=== PATIENT | male | born 1985 | race Hispanic/Latino ===

== ENCOUNTER 2019-06-01 06:29 | Inpatient (IN) | payer OTHER ==
[~2019-06-01] VITALS: Ht 172.7 cm; Wt 172.4 kg
--- OUTSIDE RECORDS SUMMARY | 2019-06-01 06:31 | XMS REPORT | Summary of Care ---
Author Author [facility] - Health Organization [facility] - Health Address Unknown Phone Unavailable Care Team Providers Care Formula Maker Name Role Phone Pcp, Patient Does Not Have A PCP Reason for Visit * Reason Comments Hospital F/U Cellulitis of the Right Leg Allergic reaction Possible to medication or new laundry detergent Encounter Details Care Team Description Date Type Department Kelley Esquivel MD [address] [place] [id number] [phone] Cellulitis of right lower extremity (Primary Dx); Hives 02/23/2019 Office Visit [facility], [facility] [address] [place] [address] Allergies Comments Active Allergy Reactions Severity Noted Date Clindamycin Hives 02/23/2019 documented as of this encounter (statuses as of 02/23/2019) Medications End Date Status Medication Sig Dispensed Refills Start Date Active benzonatate 200 mg Take 1 60 capsule 0 capsuleIndications: Acute capsule by 9 non-recurrent maxillary mouth 3 sinusitis (three) times daily as needed for Cough. Active fexofenadine (ML Take by 0 ALLERGY) 180 mg tablet mouth daily. 02/26/2019 Active Lactobacillus Acidoph & Take 1 tablet 20 tablet 0 Bulgar (FLORANEX) 1 by mouth 2 9 million cell (two) times TabIndications: daily for 10 Cellulitis of right lower days. leg 03/05/2019 Active doxycycline 100 mg Take 1 20 capsule 0 capsuleIndications: capsule by 9 Cellulitis of right lower mouth 2 (two) extremity times daily for 10 days. Active methylPREDNISolone Take by 21 Each 0 (MEDROL, ZACK,) 4 mg mouth 9 tabletsIndications: Hives SEE-INSTRUCTI ONS. follow package directions 02/23/2019 Discontinued clindamycin 300 mg Take 1 28 capsule 0 capsuleIndications: capsule by 9 Cellulitis of right lower mouth 4 leg (four) times daily for 7 days. Status Hospital, Clinic, or Ordered Dose Route Frequency Start End Date Other Facility Date Administered Medication Ended methylPREDNISolone 80 mg IM ONCE 02/24/20 acetate (DEPO-MEDROL) 19 9 injection 80 mgIndications: Hives documented as of this encounter (statuses as of 02/23/2019) Active Problems Problem Noted Date Cellulitis 02/14/2019 Morbid obesity with body mass index of 50 or higher 02/14/2019 documented as of this encounter (statuses as of 02/23/2019) Immunizations Name Administration Dates Next Due DTAP 10/31/2017 documented as of this encounter Social History Date Tobacco Use Types Packs/Day Years Used Current Some Day Smoker Cigarettes 6 Smokeless Tobacco: Never Used Drinks/Week oz/Week Comments Alcohol Use Yes Alcohol Habits Answer Date Recorded How often do you have a drink containing alcohol? 2-3 times a week 12/23/2018 How many drinks containing alcohol do you have on 1 or 2 12/23/2018 a typical day when you are drinking? How often do you have six or more drinks on one Not asked occasion? Sex Assigned at Date Recorded Not on file Industry Job Start Date Occupation Not on file Not on file Not on file Travel End Travel History Travel Start No recent travel history available. documented as of this encounter Last Filed Vital Signs Reading Time Taken Comments Vital Sign 132/80 02/23/2019 1:04 PM CDT Blood Pressure 82 02/23/2019 1:04 PM CDT Pulse 36.8 C (98.3 F) 02/23/2019 1:04 PM CDT Temperature 16 02/23/2019 1:04 PM CDT Respiratory Rate 96% 02/23/2019 1:04 PM CDT Oxygen Saturation - - Inhaled Oxygen Concentration 169.4 kg (373 lb 6.4 oz) 02/23/2019 1:04 PM CDT Weight 172.7 cm (5' 8") 02/23/2019 1:04 PM CDT Height 56.78 02/23/2019 1:04 PM CDT Body Mass Index documented in this encounter Progress Notes * Kelley Esquivel MD - 02/23/2019 1:00 PM CDT Cc: Chief Complaint Patient presents with Hospital F/U Cellulitis of the Right Leg Allergic reaction Possible to medication or new laundry detergent Paolo Solis is a 33 year old male. Foot Pain Associated symptoms include a rash. The symptoms are aggravated by movement, pal pation and weight bearing. Answers for HPI/ROS submitted by the patient on 02/23/2019 Lower extremity pain Incident occurred: more than 1 week ago Incident location: other Injury mechanism: other Pain location: right leg Pain quality: burning Pain - numeric: 5/10 Pain course: fluctuating tingling: Yes inability to bear weight: No loss of motion: Yes loss of sensation: Yes muscle weakness: No Foreign body present: no foreign bodies Right lower leg bumps/warm. The night before he went to the ER he had the bumps /warm and burning sensation. He was admitted on 02/14/2019 and discharged on 01/20. He was sent home on Clindamycin 300 mg bid 7 days. Has not had anythin g similar to this issue prior to this episode. Patient states banged right leg into conreate and had small cut in leg before he ended up with the cellulitis. Broke out in hives. Benadryl, cetrizine. Just took at 12:30 before his appoint ment. Hives everywhere on his trunk both arms and legs. Into scalp even ears. Allergies Paolo has No Known Allergies. Medications Outpatient Medications Prior to Visit Medication Sig Dispense Refill clindamycin 300 mg capsule Take 1 capsule by mouth 4 (four) times daily for 7 days. 28 capsule 0 fexofenadine (ML ALLERGY) 180 mg tablet Take by mouth daily. Lactobacillus Acidoph & Bulgar (FLORANEX) 1 million cell Tab Take 1 tablet by mouth 2 (two) times daily for 10 days. 20 tablet 0 benzonatate 200 mg capsule Take 1 capsule by mouth 3 (three) times daily as needed for Cough. 60 capsule 0 No facility-administered medications prior to visit. Histories Past Medical History: Diagnosis Date Asthma Hypertension Past Surgical History: Procedure Laterality Date TONSILLECTOMY Social History Socioeconomic History Marital status: Single Spouse name: Not on file Number of children: Not on file Years of education: Not on file Highest education level: Not on file Occupational History Not on file Social Needs Financial resource strain: Not on file Food insecurity: Worry: Not on file Inability: Not on file Transportation needs: Medical: Not on file Non-medical: Not on file Tobacco Use Smoking status: Current Some Day Smoker Years: 6.00 Types: Cigarettes Smokeless tobacco: Never Used Substance and Sexual Activity Alcohol use: Yes Frequency: 2-3 times a week Drinks per session: 1 or 2 Drug use: No Sexual activity: Yes Lifestyle Physical activity: Days per week: Not on file Minutes per session: Not on file Stress: Not on file Relationships Social connections: Talks on phone: Not on file Gets together: Not on file Attends scientology service: Not on file Active member of club or organization: Not on file Attends meetings of clubs or organizations: Not on file Relationship status: Not on file Intimate partner violence: Fear of current or ex partner: Not on file Emotionally abused: Not on file Physically abused: Not on file Forced sexual activity: Not on file Other Topics Concern Not on file Social History Narrative Not on file Family History Problem Relation Age of Onset Hypertension Mother Cancer Maternal Grandmother Cancer Paternal Grandfather Review of Systems Constitutional: Negative. Cardiovascular: Negative. Skin: Positive for rash. Hives all over body Right lower extremity red/warm with some small bumps at surface of the skin. Vital Signs BP 132/80 (BP Location: Right arm, Patient Position: Sitting, BP CUFF SIZE: Adul t Large) | Pulse 82 | Temp 36.8 C (98.3 F) (Oral) | Resp 16 | Ht 5' 8" ( 1.727 m) | Wt 373 lb 6.4 oz (169.4 kg) | SpO2 96% | BMI 56.78 kg/m Physical Exam Constitutional: He appears well-developed and well-nourished. HENT: Head: Normocephalic and atraumatic. Eyes: Pupils are equal, round, and reactive to light. Conjunctivae are normal. Cardiovascular: Intact distal pulses. Pulmonary/Chest: Effort normal. Musculoskeletal: He exhibits edema (right lower leg) and tenderness (right lower leg on palpation). Neurological: He is alert. Skin: Skin is warm. Rash noted. There is erythema. Right lower leg warm, small bumps at the surface, with edema on leg. Rest of his body slightly raised lesions red, circular different sizes all over trunk, arms and legs, even into scalp Vitals reviewed. Assessment/Plan 1. Cellulitis of right lower extremity D/c clindamycin may be causing patient's "hives" reaction. Advised patient if d oes not improve will need to do further evaluation advise him to keep his legs r aised if at all possible. - doxycycline 100 mg capsule; Take 1 capsule by mouth 2 (two) times daily for 10 days. Dispense: 20 capsule; Refill: 0 2. Hives Depomedrol 80 mg im given to patient. - methylPREDNISolone acetate (DEPO-MEDROL) injection 80 mg - methylPREDNISolone (MEDROL, ZACK,) 4 mg tablets; Take by mouth SEE-INSTRUCTION S. follow package directions Dispense: 21 Each; Refill: 0 Stopped clindamycin. Advised patient let his know to go back to their old detergent incase that is what caused his hives. This visit did not involve counseling and coordination that comprised more than 50% of the visit time. Answers for HPI/ROS submitted by the patient on 02/23/2019 Lower extremity pain Incident occurred: more than 1 week ago Incident location: other Injury mechanism: other Pain location: right leg Pain quality: burning Pain - numeric: 5/10 Pain course: fluctuating tingling: Yes inability to bear weight: No loss of motion: Yes loss of sensation: Yes muscle weakness: No Foreign body present: no foreign bodies Answers for HPI/ROS submitted by the patient on 02/23/2019 Lower extremity pain Incident occurred: more than 1 week ago Incident location: other Injury mechanism: other Pain location: right leg Pain quality: burning Pain - numeric: 5/10 Pain course: fluctuating tingling: Yes inability to bear weight: No loss of motion: Yes loss of sensation: Yes muscle weakness: No Foreign body present: no foreign bodies documented in this encounter Plan of Treatment Health Maintenance Due Date Last Done Comments PNEUMOCOCCAL 0-64 YEARS 1993 COMBINED SERIES (1 of 1 - PPSV23) VARICELLA VACCINES (1 of 2000 2 - 13+ 2-dose series) INFLUENZA VACCINE 03/22/2019 DTaP,Tdap,and Td Vaccines 11/01/2027 10/31/2017 (2 - Tdap) documented as of this encounter Goals Goal Patient Associated Recent Progress Patient-Stat Author Goal Type Problems ed? Quit using tobacco Tobacco No Amy Canas (cigarettes, smokeless, etc) Use documented as of this encounter Results Not on filedocumented in this encounter Visit Diagnoses Diagnosis Cellulitis of right lower extremity - Primary Cellulitis and abscess of leg, except foot Hives Urticaria, unspecified documented in this encounter Administered Medications Action Date Dose Rate Site Medication Order MAR Action 02/23/2019 3:19 PM CDT 80 mg Right Dorsogluteal-IM methylPREDNISolone acetate (DEPO-MEDROL) Given injection 80 mg 80 mg, Intramuscular, ONCE, 1 dose, 02/23/19 at 1500, Routine documented in this encounter Insurance Type Payer Benefit Subscriber ID Effective Phone Address Plan / Dates Group O AETNA [facility] [id number] 2017-P sanya documented as of this encounter
--- OUTSIDE RECORDS SUMMARY | 2019-06-01 06:31 | XMS REPORT | Summary of Care ---
Author Author [facility] - Health Organization [facility] - Health Address Unknown Phone Unavailable Care Team Providers Care Chart Clerk Name Role Phone Pcp, Patient Does Not Have A PCP Encounter Details Care Team Description Date Type Department Doctor Unassigned, [place] [address] [place] [address] 02/25/2019 Patient Secure [facility], [address] [address] Allergies Comments Active Allergy Reactions Severity Noted Date Clindamycin Hives 02/23/2019 documented as of this encounter (statuses as of 03/05/2019) Medications End Date Status Medication Sig Dispensed Refills Start Date Active benzonatate 200 mg Take 1 60 capsule 0 capsuleIndications: Acute capsule by 9 non-recurrent maxillary mouth 3 sinusitis (three) times daily as needed for Cough. Active fexofenadine (ML Take by 0 ALLERGY) 180 mg tablet mouth daily. 03/05/2019 Active doxycycline 100 mg Take 1 20 capsule 0 capsuleIndications: capsule by 9 Cellulitis of right lower mouth 2 (two) extremity times daily for 10 days. Active methylPREDNISolone Take by 21 Each 0 (MEDROL, ZACK,) 4 mg mouth 9 tabletsIndications: Hives SEE-INSTRUCTI ONS. follow package directions 02/26/2019 Lactobacillus Acidoph & Take 1 tablet 20 tablet 0 Bulgar (FLORANEX) 1 by mouth 2 9 million cell (two) times TabIndications: daily for 10 Cellulitis of right lower days. leg documented as of this encounter (statuses as of 03/05/2019) Active Problems Problem Noted Date Cellulitis 02/14/2019 Morbid obesity with body mass index of 50 or higher 02/14/2019 documented as of this encounter (statuses as of 03/05/2019) Immunizations Name Administration Dates Next Due DTAP [...] of this encounter Last Filed Vital Signs Not on filedocumented in this encounter Plan of Treatment Health Maintenance Due Date Last Done Comments PNEUMOCOCCAL 0-64 YEARS 1993 COMBINED SERIES (1 of 1 - PPSV23) VARICELLA VACCINES (1 of 2000 2 - 13+ 2-dose series) INFLUENZA VACCINE (#1) 2019 DTaP,Tdap,and Td Vaccines 11/01/2027 10/31/2017 (2 - Tdap) documented as of this encounter Goals Goal Patient Associated Recent Progress Patient-Stat Author Goal Type Problems ed? Quit using tobacco Tobacco No Amy Canas (cigarettes, smokeless, etc) Use documented as of this encounter Results Not on filedocumented in this encounter Insurance Type Payer Benefit Subscriber ID Effective Phone Address Plan / Dates Group O AETNA AET[employer] O [id number] 2017-P resent documented as of this encounter
--- OUTSIDE RECORDS SUMMARY | 2019-06-01 06:31 | XMS REPORT | Summary of Care ---
Author Author [facility] - Health Organization [facility] - Health Address Unknown Phone Unavailable Care Team Providers Care Glove Cuffer Name Role Phone Pcp, Patient Does Not Have A PCP Encounter Details Care Team Description Date Type Department Doctor Unassigned, [place] [address] [place] [address] 02/25/2019 Patient Secure [facility] and [facility], [address] [phone] Allergies Comments Active Allergy Reactions Severity Noted Date Clindamycin Hives 02/23/2019 documented as of this encounter (statuses as of 03/06/2019) Medications End Date Status Medication Sig Dispensed Refills Start Date Active benzonatate 200 mg Take 1 60 capsule 0 capsuleIndications: Acute capsule by 9 non-recurrent maxillary mouth 3 sinusitis (three) times daily as needed for Cough. Active fexofenadine (ML Take by 0 ALLERGY) 180 mg tablet mouth daily. Active methylPREDNISolone Take by 21 Each 0 (MEDROL, ZACK,) 4 mg mouth 9 tabletsIndications: Hives SEE-INSTRUCTI ONS. follow package directions 02/26/2019 Lactobacillus Acidoph & Take 1 tablet 20 tablet 0 Bulgar (FLORANEX) 1 by mouth 2 9 million cell (two) times TabIndications: daily for 10 Cellulitis of right lower days. leg 03/05/2019 doxycycline 100 mg Take 1 20 capsule 0 capsuleIndications: capsule by 9 Cellulitis of right lower mouth 2 (two) extremity times daily for 10 days. documented as of this encounter (statuses as of 03/06/2019) Active Problems Problem Noted Date Cellulitis 02/14/2019 Morbid obesity with body mass index of 50 or higher 02/14/2019 documented as of this encounter (statuses as of 03/06/2019) Immunizations Name Administration Dates Next Due DTAP [...] Problems ed? Quit using tobacco Tobacco No Harvey Canase (cigarettes, smokeless, etc) Use documented as of this encounter Results Not on filedocumented in this encounter Insurance Type Payer Benefit Subscriber ID Effective Phone Address Plan / Dates Group O AETNA AETNA O [id number] 2017-P resent documented as of this encounter
--- OUTSIDE RECORDS SUMMARY | 2019-06-01 06:31 | XMS REPORT | Summary of Care ---
Author Author [facility] - Health Organization [facility] - Health Address Unknown Phone Unavailable Care Team Providers Care Butcher Helper Name Role Phone Pcp, Patient Does Not Have A PCP Reason for Referral * (Routine) Referred By Contact Referred To Contact Status Reason Specialty Diagnoses / Procedures Harmony Kaur, YOSEPH [address] [place] [address] Pcp, Patient Does Not Have A [address] [place] [address] New Request Diagnoses Cellulitis of right lower leg P rocedures Discharge Follow-up: PCP PATIENT DOES NOT HAVE A PCP; 1 Week * (Routine) Referred By Contact Referred To Contact Status Reason Specialty Diagnoses / Procedures Ana Hernandez MD [address] [place] [address] New Request Procedures UNILATERAL VENOUS DUPLEX LOWER EXTREMITY BY VASCULAR LAB * (Routine) Referred By Contact Referred To Contact Status Reason Specialty Diagnoses / Procedures Ana Hernandez MD [address] [place] [address] New Request Procedures UNILATERAL VENOUS DUPLEX LOWER EXTREMITY BY VASCULAR LAB Reason for Visit * Reason Comments Pain right leg ULTRASOUND * Auth/Cert Referred By Contact Referred To Contact Status Reason Specialty Diagnoses / Procedures [facility] Emergency Dept [address] [place] [address] Emergency Medicine Encounter Details Care Team Description Date Type Department Warren Carl DO [address] [facility] [address] [place] [address] Ramo Toure MD [address] [place] [address] [phone] Ana Hernandez MD [address] [place] [address] [phone] Cellulitis 02/14/2019 Hospital [facility] Health - Encounter Medicine/Surgery CLC 7B 02/16/2019 [address] [place] [address] Allergies No Known Allergiesdocumented as of this encounter (statuses as of 02/16/2019) Medications End Date Status Medication Sig Dispensed Refills Start Date Active benzonatate 200 mg Take 1 60 capsule 0 capsuleIndications: Acute capsule by 9 non-recurrent maxillary mouth 3 sinusitis (three) times daily as needed for Cough. Active fexofenadine (ML Take by 0 ALLERGY) 180 mg tablet mouth daily. 02/23/2019 Active clindamycin 300 mg Take 1 28 capsule 0 capsuleIndications: capsule by 9 Cellulitis of right lower mouth 4 leg (four) times daily for 7 days. 02/26/2019 Active Lactobacillus Acidoph & Take 1 tablet 20 tablet 0 Bulgar (FLORANEX) 1 by mouth 2 9 million cell (two) times TabIndications: daily for 10 Cellulitis of right lower days. leg 02/16/2019 Discontinued amoxicillin 500 mg Take 2 60 capsule 0 capsuleIndications: Acute capsules by 9 non-recurrent maxillary mouth 3 sinusitis (three) times daily. documented as of this encounter (statuses as of 02/16/2019) Active Problems Problem Noted Date Cellulitis 02/14/2019 Morbid obesity with body mass index of 50 or higher 02/14/2019 documented as of this encounter (statuses as of 02/16/2019) Immunizations Name Administration Dates Next Due DTAP 10/31/2017 documented as of this encounter Social History Date Tobacco Use Types Packs/Day Years Used Current Some Day Smoker Cigarettes 6 Tobacco Cessation: Ready to Quit: Yes; Counseling Given: Yes Drinks/Week oz/Week Comments Alcohol Use Yes Alcohol [...] Signs Reading Time Taken Comments Vital Sign 130/68 02/16/2019 8:00 AM CDT Blood Pressure 57 02/16/2019 8:00 AM CDT Pulse 35.6 C (96.1 F) 02/16/2019 8:00 AM CDT Temperature 18 02/16/2019 8:00 AM CDT Respiratory Rate 99% 02/16/2019 8:00 AM CDT Oxygen Saturation - - Inhaled Oxygen Concentration 168.7 kg (372 lb) 02/14/2019 11:27 AM CDT Weight 172.7 cm (5' 8") 02/14/2019 11:27 AM CDT Height 56.56 02/14/2019 11:27 AM CDT Body Mass Index documented in this encounter Discharge Summaries * Harmony Kaur FNP - 02/16/2019 10:38 AM CDT CLS Team Discharge Summary Date of Service: 02/16/2019 ADMIT DATE: 02/14/2019 DISCHARGE DATE: 02/16/2019 ATTENDING MD: YOSEPH Coughlin PCP: PATIENT DOES NOT HAVE A PCP REASON FOR ADMISSION RLE swelling and erythema FINAL DIAGNOSIS: RLE cellulitis. KIM on CPAP Asthma, mild intermittent Morbid obesity HTN Orders Placed This Encounter Discharge Follow-up: PCP PATIENT DOES NOT HAVE A PCP; 1 Week No orders of the defined types were placed in this encounter. Temp: [35.6 C (96.1 F)-36.5 C (97.7 F)] Pulse: [52-66] Resp: [16-19] BP: (118-159)/(53-83) SIGNIFICANT LAB/X-RAYS: Recent Results (from the past 48 hour(s)) Basic Metabolic Panel (NA, K, CL, CO2, GLUCOSE, BUN, CREATININE, CA) Collection Time: 02/14/19 11:45 AM Result Value Ref Range NA 139 135 - 145 mmol/L K 4.5 3.5 - 5.0 mmol/L CL 102 98 - 108 mmol/L CO2 TOTAL 25 23 - 31 mmol/L AGAP 12 2 - 16 BUN 17 7 - 23 mg/dL GLUCOSE 100 70 - 110 mg/dL CREATININE 0.94 0.60 - 1.25 mg/dL CALCIUM 9.8 8.6 - 10.6 mg/dL eGFR Calculation (Non-) 93.6 mL/min/1.73m2 eGFR Calculation () 113.5 mL/min/1.73m2 Blood Culture Collection Time: 02/14/19 11:45 AM Result Value Ref Range Blood Culture-Aerobic No growth at 24 hours No growth Blood Culture-Anaerobic No growth at 24 hours No growth CBC WITH DIFFERENTIAL Collection Time: 02/14/19 11:45 AM Result Value Ref Range WBC 8.13 4.20 - 10.70 10*3/L RBC 5.20 4.26 - 5.52 10*6/L HGB 15.9 12.2 - 16.4 g/dL HCT 46.6 38.4 - 49.3 % MCV 89.6 81.7 - 95.6 fL MCH 30.6 26.1 - 32.7 pg MCHC 34.1 31.2 - 35.0 g/dL RDW-SD 40.8 38.5 - 51.6 fL RDW-CV 12.7 12.1 - 15.4 % PLT 363 (H) 150 - 328 10*3/L MPV 9.3 (L) 9.8 - 13.0 fL NRBC/100 WBC 0.0 0.0 - 10.0 /100 WBCs NRBC x10^3 <0.01 10*3/L GRAN MAT (NEUT) % 49.8 % IMM GRAN % 1.50 % LYMPH % 37.5 % MONO % 8.9 % EOS % 1.6 % BASO % 0.7 % GRAN MAT x10^3(ANC) 4.05 1.99 - 6.95 10*3/uL IMM GRAN x10^3 0.12 (H) 0.00 - 0.06 10*3/uL LYMPH x10^3 3.05 1.09 - 3.23 10*3/uL MONO x10^3 0.72 0.36 - 1.02 10*3/uL EOS x10^3 0.13 0.06 - 0.53 10*3/uL BASO x10^3 0.06 0.01 - 0.09 10*3/uL BLOOD CULTURE SCREEN Collection Time: 02/14/19 1:18 PM Result Value Ref Range Blood Culture-Aerobic No growth at 24 hours No growth Blood Culture-Anaerobic No growth at 24 hours No growth CBC WITH DIFFERENTIAL Collection Time: 02/16/19 1:51 AM Result Value Ref Range WBC 8.16 4.20 - 10.70 10*3/L RBC 4.51 4.26 - 5.52 10*6/L HGB 13.6 12.2 - 16.4 g/dL HCT 40.2 38.4 - 49.3 % MCV 89.1 81.7 - 95.6 fL MCH 30.2 26.1 - 32.7 pg MCHC 33.8 31.2 - 35.0 g/dL RDW-SD 40.5 38.5 - 51.6 fL RDW-CV 12.5 12.1 - 15.4 % PLT 323 150 - 328 10*3/L MPV 9.3 (L) 9.8 - 13.0 fL NRBC/100 WBC 0.0 0.0 - 10.0 /100 WBCs NRBC x10^3 <0.01 10*3/L GRAN MAT (NEUT) % 44.5 % IMM GRAN % 0.60 % LYMPH % 45.1 % MONO % 6.7 % EOS % 2.7 % BASO % 0.4 % GRAN MAT x10^3(ANC) 3.63 1.99 - 6.95 10*3/uL IMM GRAN x10^3 0.05 0.00 - 0.06 10*3/uL LYMPH x10^3 3.68 (H) 1.09 - 3.23 10*3/uL MONO x10^3 0.55 0.36 - 1.02 10*3/uL EOS x10^3 0.22 0.06 - 0.53 10*3/uL BASO x10^3 0.03 0.01 - 0.09 10*3/uL BASIC METABOLIC PANEL (NA, K, CL, CO2, GLUCOSE, BUN, CREATININE, CA) Collection Time: 02/16/19 1:57 AM Result Value Ref Range NA 138 135 - 145 mmol/L K 4.0 3.5 - 5.0 mmol/L CL 102 98 - 108 mmol/L CO2 TOTAL 27 23 - 31 mmol/L AGAP 9 2 - 16 BUN 14 7 - 23 mg/dL GLUCOSE 95 70 - 110 mg/dL CREATININE 0.93 0.60 - 1.25 mg/dL CALCIUM 9.4 8.6 - 10.6 mg/dL eGFR Calculation (Non-) 94.8 mL/min/1.73m2 eGFR Calculation () 114.9 mL/min/1.73m2 No final results containing an impression from the past 48 hours were found. HOSPITAL COURSE: This patient is a 33 year-old male who presents to the acute care hospital with ? RLE pain and erythema x 3 days that started after he accidentally hit his righ t leg on the side of the pool. He also ? RLE swelling and itching. He denies any fever, chills, CP, SOB, and N/V. Upon exam, the patients RLE was tender and jannet thematous below the knee with small areas of bruises without discharge. The lucio ent was started on IV Clindamycin with symptom improvement. The patient will dis charge on oral clindamycin. ITEMS FOR FOLLOW UP PROVIDER: (including pending labs/cultures/studies, anticipa franca problems, etc.) Venous Doppler FUNCTIONAL STATUS: fully ambulatory DISCHARGE CONDITION: good COGNITIVE STATUS: cognitively intact DISCHARGE INSTRUCTIONS: Discharge Orders Discharge Follow-up: PCP PATIENT DOES NOT HAVE A PCP; 1 Week To PCP: PATIENT DOES NOT HAVE A PCP [[id number]] Patient's Preferred Location: Unknown Discharge Disposition: HOME, ([facility]) When (Patients with risk for unplanned readmission score over 16 or those noted as Hospital Dependent should follow up within 7 days with PCP or primary DX spec ialist): 1 Week Risk of Unplanned Readmission:( Score greater than 16 indicates high risk) 6 Regular Diet; Texture: Regular. Texture Regular. Diabetic: No Discharge Condition - Discharge Condition: GOOD Discharge Activity Discharge Activity: As Tolerated VTE Propylaxis- Was ordered during hospitalization DISCHARGE MEDICATIONS: Current Discharge Medication List START taking these medications Details clindamycin (CLEOCIN HCL) 300 mg Take 300 mg by mouth 4 (four) times daily. Qty: 28 capsule, Refills: 0 Start date: 02/16/2019, End date: 02/23/2019 Associated Diagnoses: Cellulitis of right lower leg Lactobacillus Acidoph & Bulgar (FLORANEX) 1 tablet Take 1 tablet by mouth 2 (two) times daily. Qty: 20 tablet, Refills: 0 Start date: 02/16/2019, End date: 02/26/2019 Associated Diagnoses: Cellulitis of right lower leg CONTINUE these medications which have NOT CHANGED Details fexofenadine (ML ALLERGY) 180 mg tablet Take by mouth daily. benzonatate (TESSALON) 200 mg Take 200 mg by mouth 3 (three) times daily as need ed for Cough. Qty: 60 capsule, Refills: 0 Associated Diagnoses: Acute non-recurrent maxillary sinusitis STOP taking these medications amoxicillin (TRIMOX) 1,000 mg Comments: Reason for Stopping: WOUND CARE: CODE STATUS: full code OXYGEN (is patient being discharged on oxygen): no PATIENT EDUCATION PROVIDED: DISCHARGE: home self care FOLLOW-UP APPOINTMENT: PCP PLAN FOR READMISSION: No Please call or text [phone] to contact YOSEPH Coughlin with any questions. - Associated attestation - Jillian Rooney MD - 02/16/2019 11:54 AM CDT I personally examined the patient on 02/16/2019 and agree with Harmony Kaur NP's note as written . I actively participated in the decision-making process. documented in this encounter Plan of Treatment Date/Time Name Type Priority Associated Diagnoses 02/14/2019 11:45 AM CDT Blood Culture LAB STAT Cellulitis of right lower leg 02/14/2019 1:18 PM CDT BLOOD CULTURE SCREEN LAB Routine Cellulitis of right lower leg Health Maintenance Due Date Last Done Comments PNEUMOCOCCAL 0-64 YEARS 1993 COMBINED SERIES (1 of 1 - PPSV23) VARICELLA VACCINES (1 of 2000 2 - 13+ 2-dose series) INFLUENZA VACCINE 03/22/2019 DTaP,Tdap,and Td Vaccines 11/01/2027 10/31/2017 (2 - Tdap) documented as of this encounter Goals Goal Patient Associated Recent Progress Patient-Stat Author Goal Type Problems ed? Quit using tobacco Tobacco No Amy Caans (cigarettes, smokeless, etc) Use documented as of this encounter Procedures Comments Procedure Name Priority Date/Time Associated Diagnosis UNILATERAL VENOUS DUPLEX Routine 02/16/2019 LOWER EXTREMITY BY 9:59 AM CDT VASCULAR LAB BASIC METABOLIC PANEL Routine 02/16/2019 (NA, K, CL, CO2, GLUCOSE, 1:57 AM CDT BUN, CREATININE, CA) CBC WITH DIFFERENTIAL Routine 02/16/2019 1:51 AM CDT CBC WITH DIFF Routine 02/16/2019 1:51 AM CDT BLOOD CULTURE SCREEN Routine 02/14/2019 Cellulitis of right lower 1:18 PM CDT leg CBC WITH DIFFERENTIAL STAT 02/14/2019 Cellulitis of right lower 11:45 AM CDT leg CBC WITH DIFF Routine 02/14/2019 Cellulitis of right lower 11:45 AM CDT leg BASIC METABOLIC PANEL STAT 02/14/2019 Cellulitis of right lower (NA, K, CL, CO2, GLUCOSE, 11:45 AM CDT leg BUN, CREATININE, CA) BLOOD CULTURE SCREEN STAT 02/14/2019 Cellulitis of right lower 11:45 AM CDT leg documented in this encounter Results * BASIC METABOLIC PANEL (NA, K, CL, CO2, GLUCOSE, BUN, CREATININE, CA) (02/16/2019 1:57 AM CDT) NA 138 135 - 145 mmol/L [facility] K 4.0 3.5 - 5.0 mmol/L [facility] CL 102 98 - 108 mmol/L [facility] CO2 TOTAL 27 23 - 31 mmol/L [facility] AGAP 9 2 - 16 [facility] BUN 14 7 - 23 mg/dL [facility] GLUCOSE 95 70 - 110 mg/dL [facility] CREATININE 0.93 0.60 - 1.25 mg/dL [facility] CALCIUM 9.4 8.6 - 10.6 mg/dL [facility] eGFR 94.8 mL/min/1.73m2 [facility] Calculation SERVICES-[facility]) eGFR 114.9 mL/min/1.73m2 [facility] Calculation SERVICES-[place] ([facility]) Specimen Blood - LINE, VENOUS Narrative Performed At Association of Glomerular Filtration Rate (GFR) and Staging of Kidney Disease* [facility] + + + + [facility] | GFR (mL/min/1.73 m2)| With Kidney Damage|Without Kidney Damage CAMPUS + + + + |>90|Stage one| Normal + + + + |60-89|Stage two| Decreased GFR + + + + |30-59|Stage three| Stage three + + + + |15-29|Stage four | Stage four + + + + |<15 (or dialysis)|Stage five | Stage five + + + + *Each stage assumes the associated GFR level has been in effect for at least three months.Stages 1 to 5, with or without kidney disease, indicate chronic kidney disease. Notes: Determination of stages one and two (with eGFR >59mL/min/1.73 m2) requires estimation of kidney damage for at least three months as defined by structural or functional abnormalities of the kidney, manifested by either: Pathological abnormalities or Markers of kidney damage (including abnormalities in the composition of the blood or urine or abnormalities in imaging tests). Performing Organization Address City/State/Zipcode Phone Number [facility] CLIA: [id number], [address] [place], [place] [id number] [facility] * CBC WITH DIFFERENTIAL (02/16/2019 1:51 AM CDT) WBC 8.16 4.20 - 10.70 [facility] 10*3/L [facility] RBC 4.51 4.26 - 5.52 10*6/L [facility] HGB 13.6 12.2 - 16.4 g/dL [facility] HCT 40.2 38.4 - 49.3 % [facility] MCV 89.1 81.7 - 95.6 fL [facility] MCH 30.2 26.1 - 32.7 pg [facility] MCHC 33.8 31.2 - 35.0 g/dL [facility] RDW-SD 40.5 38.5 - 51.6 fL [facility] RDW-CV 12.5 12.1 - 15.4 % [facility] PLT 323 150 - 328 10*3/L [facility] MPV 9.3 (L) 9.8 - 13.0 fL [facility] NRBC/100 WBC 0.0 0.0 - 10.0 /100 WBCs [facility] NRBC x10^3 <0.01 10*3/L [facility] GRAN MAT (NEUT) 44.5 % [facility] % [facility] IMM GRAN % 0.60 % [facility] LYMPH % 45.1 % [facility] MONO % 6.7 % [facility] EOS % 2.7 % [facility] BASO % 0.4 % [facility] GRAN MAT 3.63 1.99 - 6.95 10*3/uL [facility] x10^3(ANC) [facility] IMM GRAN x10^3 0.05 0.00 - 0.06 10*3/uL [facility] LYMPH x10^3 3.68 (H) 1.09 - 3.23 10*3/uL [facility] MONO x10^3 0.55 0.36 - 1.02 10*3/uL [facility] EOS x10^3 0.22 0.06 - 0.53 10*3/uL [facility] BASO x10^3 0.03 0.01 - 0.09 10*3/uL [facility] Specimen Blood - LINE, VENOUS Performing Organization Address City/State/Zipcode Phone Number [facility] CLIA: [id number], [address] [place] [address] [facility] * CBC WITH DIFFERENTIAL (02/14/2019 11:45 AM CDT) [facility] Signature WBC 8.13 4.20 - 10.70 [facility] 10*3/L [facility] RBC 5.20 4.26 - 5.52 10*6/L [facility] HGB 15.9 12.2 - 16.4 g/dL [facility] HCT 46.6 38.4 - 49.3 % [facility] MCV 89.6 81.7 - 95.6 fL [facility] MCH 30.6 26.1 - 32.7 pg [facility] MCHC 34.1 31.2 - 35.0 g/dL [facility] RDW-SD 40.8 38.5 - 51.6 fL [facility] RDW-CV 12.7 12.1 - 15.4 % [facility] PLT 363 (H) 150 - 328 10*3/L [facility] MPV 9.3 (L) 9.8 - 13.0 fL [facility] NRBC/100 WBC 0.0 0.0 - 10.0 /100 WBCs [facility] NRBC x10^3 <0.01 10*3/L [facility] GRAN MAT (NEUT) 49.8 % [facility] % [facility] IMM GRAN % 1.50 % [facility] SERVICES-[facility] LYMPH % 37.5 % [facility] MONO % 8.9 % [facility] EOS % 1.6 % [facility] BASO % 0.7 % [facility] GRAN MAT 4.05 1.99 - 6.95 10*3/uL [facility] x10^3(ANC) [facility] IMM GRAN x10^3 0.12 (H) 0.00 - 0.06 10*3/uL [facility] LYMPH x10^3 3.05 1.09 - 3.23 10*3/uL [facility] MONO x10^3 0.72 0.36 - 1.02 10*3/uL [facility] EOS x10^3 0.13 0.06 - 0.53 10*3/uL [facility] BASO x10^3 0.06 0.01 - 0.09 10*3/uL [facility] Specimen Blood - VENOUS Performing Organization Address City/State/Zipcode Phone Number [facility] CLIA: [id number], [address] [place], [place] [id number] [facility] * Basic Metabolic Panel (NA, K, CL, CO2, GLUCOSE, BUN, CREATININE, CA) (02/14/2019 11:45 AM CDT) NA 139 135 - 145 mmol/L [facility] K 4.5 3.5 - 5.0 mmol/L [facility] CL 102 98 - 108 mmol/L [facility] CO2 TOTAL 25 23 - 31 mmol/L [facility] AGAP 12 2 - 16 [facility] BUN 17 7 - 23 mg/dL [facility] GLUCOSE 100 70 - 110 mg/dL [facility] CREATININE 0.94 0.60 - 1.25 mg/dL [facility] CALCIUM 9.8 8.6 - 10.6 mg/dL [facility] eGFR 93.6 mL/min/1.73m2 [facility] Calculation [facility] ([facility]) eGFR 113.5 mL/min/1.73m2 [facility] Calculation [facility] ([facility]) Specimen Blood - VENOUS Narrative Performed At Association of Glomerular Filtration Rate (GFR) and Staging of Kidney Disease* [facility] + + + + [facility] | GFR (mL/min/1.73 m2)| With Kidney Damage|Without Kidney Damage MIZE + + + + |>90|Stage one| Normal + + + + |60-89|Stage two| Decreased GFR + + + + |30-59|Stage three| Stage three + + + + |15-29|Stage four | Stage four + + + + |<15 (or dialysis)|Stage five | Stage five + + + + *Each stage assumes the associated GFR level has been in effect for at least three months.Stages 1 to 5, with or without kidney disease, indicate chronic kidney disease. Notes: Determination of stages one and two (with eGFR >59mL/min/1.73 m2) requires estimation of kidney damage for at least three months as defined by structural or functional abnormalities of the kidney, manifested by either: Pathological abnormalities or Markers of kidney damage (including abnormalities in the composition of the blood or urine or abnormalities in imaging tests). Performing Organization Address City/State/Zipcode Phone Number [facility] CLIA: [id number], [address] [place] [address] [facility] documented in this encounter Visit Diagnoses Diagnosis Cellulitis of right lower leg - Primary Cellulitis and abscess of leg, except foot Right leg swelling Cellulitis Cellulitis and abscess of unspecified site Morbid obesity with body mass index of 50 or higher documented in this encounter Administered Medications Action Date Dose Rate Site Medication Order MAR Action 02/14/2019 8:31 PM CDT 650 mg acetaminophen (TYLENOL) tablet 650 mg Given 650 mg, Oral, Q6HPRN, Starting 02/14/19 at 1643, Until Discontinued, Routine, Pain (scale 1-3) 02/15/2019 7:54 PM CDT 1 tablet acetaminophen-codeine (TYLENOL #3) Given 300-30 mg tablet 1 tablet 1 tablet, Oral, Q6HPRN, Starting 02/14/19 at 1643, Until 02/16/19 at 1642, Routine, Pain (scale 4-6) 1 tablet Given 02/15/2019 12:56 PM CDT 1 tablet Given 02/15/2019 12:18 AM CDT 02/16/2019 9:49 AM CDT 600 mg clindamycin in d5w (CLEOCIN) 600 mg/50 Given mL Piggyback 600 mg 600 mg, IV Piggyback, Q8H ABX, First dose on 02/14/19 at 1745, Until Discontinued, 50 mL, Reason for Anti-Infective: Empiric Therapy for Suspected Infection, Empiric Therapy Site: Skin / Soft tissue, Duration of therapy: 72 hours, member of technical staff approving Restricted medication: ANA HERNANDEZ 600 mg Given 02/16/2019 1:51 AM CDT 600 mg Given 02/15/2019 5:26 PM CDT 02/15/2019 11:14 PM CDT 25 mg diphenhydrAMINE (BENADRYL) tablet 25 mg Given 25 mg, Oral, Q6HPRN, Starting 02/14/19 at 1644, Until Discontinued, Routine, Itching 25 mg Given 02/15/2019 12:07 AM CDT 02/16/2019 9:49 AM CDT 40 mg Abdomen-SC enoxaparin (LOVENOX) injection 40 mg Given 40 mg, Subcutaneous, DAILY, First dose on 02/15/19 at 0900, Until Discontinued, Routine 40 mg Abdomen-SC Given 02/15/2019 8:49 AM CDT 02/16/2019 9:49 AM CDT hydrocortisone (GLY-LAMONT) 1 % lotion Applied Topical, DAILY, First dose on 02/14/19 at 1700, Until Discontinued, Routine Applied 02/15/2019 8:54 AM CDT Given 02/14/2019 5:56 PM CDT Action Date Dose Rate Site Medication Order MAR Action 02/14/2019 11:56 AM CDT 25 mg diphenhydrAMINE (BENADRYL) injection 25 Given mg 25 mg, Slow IV Push, ONCE, 1 dose, 02/14/19 at 1300, STAT 02/14/2019 1:00 PM CDT 1 tablet HYDROcodone-acetaminophen (NORCO 5) Given 5-325 mg tablet 1 tablet 1 tablet, Oral, ONCE, 1 dose, 02/14/19 at 1400, VINOD 02/14/2019 11:42 AM CDT 3.375 g piperacillin-tazobactam (ZOSYN) 3.375 Given gram/50 mL Piggyback 3.375 g 3.375 g, IV Piggyback, ONCE, 1 dose, 02/14/19 at 1245, 50 mL, Reason for Anti-Infective: Documented Infection, Documented Infection Site: Skin / Soft Tissue, Duration of Therapy: Other (see Comments) 02/14/2019 11:42 AM CDT 1,000 mg vancomycin 1 g in NS 200 mL RTU IV Given Piggyback 1,000 mg 1,000 mg, IV Piggyback, ONCE, 1 dose, 02/14/19 at 1245, Reason for Anti-Infective: Documented Infection, Documented Infection Site: Skin / Soft Tissue, Duration of Therapy: Other (see Comments) documented in this encounter Insurance Type Payer Benefit Subscriber ID Effective Phone Address Plan / Dates Group O TREVOR MUR[facility] [place] [id number] 2017-P resent documented as of this encounter
--- OUTSIDE RECORDS SUMMARY | 2019-06-01 06:31 | XMS REPORT | Summary of Care ---
Author Author [facility] - Health Organization [facility] - Health Address Unknown Phone Unavailable Care Team Providers Care Machine Compositor Name Role Phone Pcp, Patient Does Not Have A PCP Reason for Visit * Reason Comments Cellulitis lower right leg, warm to the touch Encounter Details Care Team Description Date Type Department Arnel Luciano, YOSEPH [address] [place] [address] [place] [address] [place] [address] [phone] Cellulitis of right upper extremity (Primary Dx) 03/09/2019 Office Visit [facility]- [place] [address], [address] [place] [phone] Allergies Comments Active Allergy Reactions Severity Noted Date Clindamycin Hives 02/23/2019 documented as of this encounter (statuses as of 03/09/2019) Medications End Date Status Medication Sig Dispensed [...] tabletsIndications: Hives SEE-INSTRUCTI ONS. follow package directions Active doxycycline 100 mg Take 1 tablet 14 tablet 0 tabletIndications: by mouth 2 9 Cellulitis of right upper (two) times extremity daily. 03/09/2019 Discontinued doxycycline 100 mg Take 1 tablet 14 tablet 0 tabletIndications: by mouth 2 9 Cellulitis of right upper (two) times extremity daily. documented as of this encounter (statuses as of 03/09/2019) Active Problems Problem Noted Date Cellulitis 02/14/2019 Morbid obesity with body mass index of 50 or higher 02/14/2019 documented as of this encounter (statuses as of 03/09/2019) Immunizations Name Administration Dates Next Due DTAP [...] Signs Reading Time Taken Comments Vital Sign 133/70 03/09/2019 4:01 PM CDT Blood Pressure 55 03/09/2019 4:01 PM CDT Pulse 37.1 C (98.7 F) 03/09/2019 4:01 PM CDT Temperature 16 03/09/2019 4:01 PM CDT Respiratory Rate - - Oxygen Saturation - - Inhaled Oxygen Concentration 170.2 kg (375 lb 3.2 oz) 03/09/2019 4:01 PM CDT Weight 172.7 cm (5' 8") 03/09/2019 4:01 PM CDT Height 57.05 03/09/2019 4:01 PM CDT Body Mass Index documented in this encounter Progress Notes * Arnel Luciano, YOSEPH - 03/09/2019 4:30 PM CDT Cc: Chief Complaint Patient presents with Cellulitis lower right leg, warm to the touch Paolo Solis is a 33 year old male. Pt who was diagnosed with cellulitis of R lower ext about 3 weeks ago came for f ollow up. Initially he went to ER and was discharged with Oral clindamycin but l ater he developed some reaction to this medication and was started on Doxycyclin e . His sxs improved much but he still has some residual redness and at times he feels it has slight warmth to it. He denies fever, chills, fatigue or weaknesse s. He denies diarrhea, nausea or vomiting. He denies any other sxs Allergies Paolo is allergic to clindamycin. Medications Outpatient Medications Prior to Visit Medication Sig Dispense Refill methylPREDNISolone (MEDROL, ZACK,) 4 mg tablets Take by mouth SEE-NERISSA ESPITIA. follow package directions 21 Each 0 fexofenadine (ML ALLERGY) 180 mg tablet Take by mouth daily. benzonatate 200 mg capsule Take 1 capsule [...] file Gets together: Not on file Attends sikhism service: Not on file Active member of [...] Cancer Paternal Grandfather Review of Systems Constitutional: Negative for chills, fatigue and fever. Respiratory: Negative for shortness of breath. Cardiovascular: Negative for chest pain and palpitations. Gastrointestinal: Negative for diarrhea, nausea and vomiting. Genitourinary: Negative for flank pain. Neurological: Negative for dizziness, weakness and headaches. Psychiatric/Behavioral: Negative for agitation. Vital Signs BP 133/70 (BP Location: Left arm, Patient Position: Sitting, BP CUFF SIZE: Adult Large) | Pulse 55 | Temp 37.1 C (98.7 F) (Oral) | Resp 16 | Ht 5' 8" (1 .727 m) | Wt 375 lb 3.2 oz (170.2 kg) | BMI 57.05 kg/m Physical Exam Constitutional: He is oriented to person, place, and time. He appears well-devel oped and well-nourished. Morbidly obese HENT: Head: Normocephalic and atraumatic. Eyes: Pupils are equal, round, and reactive to light. EOM are normal. Neck: Normal range of motion. Neck supple. No thyromegaly present. Cardiovascular: Normal rate, regular rhythm and normal heart sounds. Exam reveal s no gallop. No murmur heard. Pulmonary/Chest: Effort normal and breath sounds normal. No respiratory distress . He has no wheezes. He has no rales. He exhibits no tenderness. Abdominal: Soft. Bowel sounds are normal. He exhibits no distension. There is no tenderness. Musculoskeletal: Normal range of motion. Right lower ext has mild redness , mild tenderness to touch But no drainage not ed. A small scabby wound ( the entrance of the possible infection) noted on the base of the ankle Lymphadenopathy: He has no cervical adenopathy. Neurological: He is alert and oriented to person, place, and time. No cranial ne rve deficit or sensory deficit. He exhibits normal muscle tone. Coordination nor mal. Skin: Skin is warm and dry. Capillary refill takes less than 2 seconds. No rash noted. Psychiatric: He has a normal mood and affect. Assessment/Plan Cellulitis of Right lower ext Will treat with another week of Doxycycline If patient develops fever or chills , advised him to go to ER Advised to apply OTC Triple abx cream This visit did not involve counseling and coordination that comprised more than 50% of the visit time. documented in this encounter Plan of Treatment Care Team Description Date Type Specialty Arnel Luciano FNP [address] [phone] 03/16/2019 Office Visit Family Medicine Health Maintenance Due Date Last Done Comments [...] encounter Visit Diagnoses Diagnosis Cellulitis of right upper extremity - Primary Cellulitis and abscess of upper arm and forearm documented in this encounter Insurance Type Payer Benefit Subscriber ID Effective Phone Address Plan / Dates Group [facility] [id number] 2017-P resent documented as of this encounter
--- OUTSIDE RECORDS SUMMARY | 2019-06-01 06:31 | XMS REPORT | Summary of Care ---
Author Author [facility] - Health Organization [facility] - Health Address Unknown Phone Unavailable Care Team Providers Care Rnp Name Role Phone Pcp, Patient Does Not Have A PCP Reason for Visit * Reason Comments Cellulitis lower right leg, warm to the touch Encounter Details Care Team Description Date Type Department Arnel Luciano, YOSEPH [address] [place] [address] [place] [address] [place] [address] [phone] Cellulitis of right upper extremity (Primary Dx) 03/09/2019 Office Visit [facility]- [place] [address], [address] [place] [phone] Allergies Comments Active Allergy Reactions Severity Noted [...] file Gets together: Not on file Attends mormon service: Not on file Active member of [...] Description Date Type Specialty Arnel Luciano FNP [address] [phone] 03/16/2019 Office Visit Family Medicine [...] Address Plan / Dates Group [facility] [id number] 2017-P resent documented as of this encounter
--- OUTSIDE RECORDS SUMMARY | 2019-06-01 06:31 | XMS REPORT | Summary of Care ---
Author Author [facility] - Health Organization [facility] - Health Address Unknown Phone Unavailable Care Team Providers Care Makeup Artist Name Role Phone Pcp, Patient Does Not Have A PCP Reason for Visit * Reason Comments Cellulitis lower right leg, warm to the touch Encounter Details Care Team Description Date Type Department Arnel Luciano, YOSEPH [address] [place] [address] [place] [address] [place] [phone] Cellulitis of right upper extremity (Primary Dx) 03/09/2019 Office Visit [facility]- [place] [address], [address] [place] [phone] Allergies Comments Active Allergy Reactions Severity Noted [...] right leg, warm to the touch Paolo Solsi is a 33 year old male. Pt [...] file Gets together: Not on file Attends zoroastrianism service: Not on file Active member of [...] Description Date Type Specialty Arnel Luciano FNP [address] [phone] 03/16/2019 Office Visit Family Medicine [...] Address Plan / Dates Group O [facility]NA [facility] [id number] 2017-P resent documented as of this encounter
--- OUTSIDE RECORDS SUMMARY | 2019-06-01 06:31 | XMS REPORT | Summary of Care ---
Author Author [facility] - Health Organization [facility] - Health Address Unknown Phone Unavailable Care Team Providers Care Behavior Support Specialist Name Role Phone Pcp, Patient Does Not Have A PCP Reason for Visit * Reason Comments Hospital F/U Cellulitis of the Right Leg Allergic reaction Possible to medication or new laundry detergent Encounter Details Care Team Description Date Type Department Kelley Esquivel MD [address] [place] [id number] [phone] Cellulitis of right lower extremity (Primary Dx); Hives 02/23/2019 Office Visit [facility], [facility] [address] [facility] [address] [place] [phone] Allergies Comments Active Allergy Reactions [...] file Gets together: Not on file Attends judaism service: Not on file Active member of [...] Address Plan / Dates Group O AETNA [facility] [id number] 2017-P sanya documented as of this encounter
--- OUTSIDE RECORDS SUMMARY | 2019-06-01 06:31 | XMS REPORT | Summary of Care ---
Author Author [facility] - Health Organization [facility] - Health Address Unknown Phone Unavailable Care Team Providers Care Drop Tester Name Role Phone Pcp, Patient Does Not Have A PCP Encounter Details Care Team Description Date Type Department Doctor Unassigned, [place] [address] [place] [address] 02/25/2019 Patient Secure [facility], [address] [phone] Allergies Comments Active Allergy Reactions Severity Noted Date Clindamycin Hives 02/23/2019 documented as of this encounter (statuses as of 02/25/2019) Medications End Date Status Medication Sig Dispensed [...] tabletsIndications: Hives SEE-INSTRUCTI ONS. follow package directions documented as of this encounter (statuses as of 02/25/2019) Active Problems Problem Noted Date Cellulitis 02/14/2019 Morbid obesity with body mass index of 50 or higher 02/14/2019 documented as of this encounter (statuses as of 02/25/2019) Immunizations Name Administration Dates Next Due DTAP [...] Problems ed? Quit using tobacco Tobacco No CanasRakeshAmy (cigarettes, smokeless, etc) Use documented as of this encounter Results Not on filedocumented in this encounter Insurance Type Payer Benefit Subscriber ID Effective Phone Address Plan / Dates Group O AETNA AETNA O [id number] 2017-P resent documented as of this encounter
--- OUTSIDE RECORDS SUMMARY | 2019-06-01 06:31 | XMS REPORT | Summary of Care ---
Author Author [facility] - Health Organization [facility] - Health Address Unknown Phone Unavailable Care Team Providers Care Director Government Name Role Phone Pcp, Patient Does Not Have A PCP Reason for Visit * Reason Comments Hospital F/U Cellulitis of the Right Leg Allergic reaction Possible to medication or new laundry detergent Encounter Details Care Team Description Date Type Department Kelley Esquivel MD [address] [place] [address] [phone] Cellulitis of right lower extremity (Primary Dx); Hives 02/23/2019 Office Visit [facility], [facility] [address] [facility] [address] [place] [phone] Allergies Comments Active Allergy Reactions [...] file Gets together: Not on file Attends samaritan service: Not on file Active member of [...] Address Plan / Dates Group O AETNA [facility] [id number] 2017-P sanya documented as of this encounter
--- OUTSIDE RECORDS SUMMARY | 2019-06-01 06:32 | XMS REPORT ---
Author Author [facility] Address Unknown Phone Unavailable Care Team Providers Care Pain Management Nurse Practitioner Name Role Phone Unavailable Unavailable Problems This patient has no known problems. Allergies, Adverse Reactions, Alerts This patient has no known allergies or adverse reactions. Medications This patient has no known medications.
--- OUTSIDE RECORDS SUMMARY | 2019-06-01 06:32 | XMS REPORT | Summary of Care ---
Author Author [facility] - Health Organization [facility] - Health Address Unknown Phone Unavailable Care Team Providers Care Sba Business Development Officer Name Role Phone Pcp, Patient Does Not Have A PCP Encounter Details Care Team Description Date Type Department Doctor Unassigned, [place] [address] [place] [address] 03/18/2019 Patient Secure [facility] Health Messages Msg [address] [place] [phone] Allergies Comments Active Allergy Reactions Severity Noted Date Clindamycin Hives 02/23/2019 documented as of this encounter (statuses as of 03/24/2019) Medications End Date Status Medication Sig Dispensed [...] of right upper (two) times extremity daily. Active mupirocin 2 % Apply to 22 g 1 ointmentIndications: area(s) 3 9 Cellulitis of right lower (three) times extremity without foot daily. Active cephALEXin 500 mg Take 1 28 capsule 0 capsuleIndications: capsule by 9 Cellulitis of right lower mouth 4 extremity without foot (four) times daily. documented as of this encounter (statuses as of 03/24/2019) Active Problems Problem Noted Date Cellulitis 02/14/2019 Morbid obesity with body mass index of 50 or higher 02/14/2019 documented as of this encounter (statuses as of 03/24/2019) Immunizations Name Administration Dates Next Due DTAP [...] Problems ed? Quit using tobacco Tobacco No Canas, Amy (cigarettes, smokeless, etc) Use documented as of this encounter Results Not on filedocumented in this encounter Insurance Type Payer Benefit Subscriber ID Effective Phone Address Plan / Dates Group HMO AETNA AETNA HMO [id number] 2017-P resent documented as of this encounter
--- OUTSIDE RECORDS SUMMARY | 2019-06-01 06:32 | XMS REPORT | Summary of Care ---
Author Author [facility] - Health Organization [facility] - Health Address Unknown Phone Unavailable Care Team Providers Care Speedboat Operator Name Role Phone Pcp, Patient Does Not Have A PCP Reason for Visit * Reason Comments Leg Pain redness and warmth Encounter Details Care Team Description Date Type Department Arnel Luciano, YOSEPH [address] [place] [address] [place] [address] [place] [phone] Cellulitis of right lower extremity without foot (Primary Dx) 03/16/2019 Office Visit [facility]- [place] [address], [address] [place] [phone] Allergies Comments Active Allergy Reactions Severity Noted Date Clindamycin Hives 02/23/2019 documented as of this encounter (statuses as of 03/16/2019) Medications End Date Status Medication Sig Dispensed [...] 4 extremity without foot (four) times daily. 03/16/2019 Discontinued amoxicillin-clavulanate Take 1 tablet 20 tablet 0 875-125 mg per by mouth 2 9 tabletIndications: (two) times Cellulitis of right lower daily. extremity without foot Status Hospital, Clinic, or Ordered Dose Route Frequency Start End Date Other Facility Date Administered Medication Ended cefTRIAXone (ROCEPHIN) 1000 mg IM ONCE 03/16/20 injection 1,000 mg 19 9 documented as of this encounter (statuses as of 03/16/2019) Active Problems Problem Noted Date Cellulitis 02/14/2019 Morbid obesity with body mass index of 50 or higher 02/14/2019 documented as of this encounter (statuses as of 03/16/2019) Immunizations Name Administration Dates Next Due DTAP [...] Signs Reading Time Taken Comments Vital Sign 130/76 03/16/2019 4:21 PM CDT Blood Pressure 56 03/16/2019 4:21 PM CDT Pulse 36.4 C (97.5 F) 03/16/2019 4:21 PM CDT Temperature 18 03/16/2019 4:21 PM CDT Respiratory Rate - - Oxygen Saturation - - Inhaled Oxygen Concentration 172.4 kg (380 lb 1.6 oz) 03/16/2019 4:21 PM CDT Weight 172.7 cm (5' 8") 03/16/2019 4:21 PM CDT Height 57.79 03/16/2019 4:21 PM CDT Body Mass Index documented in this encounter Progress Notes * Arnel Luciano FNP - 03/16/2019 4:30 PM CDT Cc: Chief Complaint Patient presents with Leg Pain redness and warmth Paolo Solis is a 33 year old male. Pt came for follow up for his Right lower ext cellulitis. Says he still has pain and warmth in his lower ext. He had this 2 weeks ago and he visited ER where he was sent with prescription for clindamycin. Because of side effects he decided to stop taking his meds. Then he came to clinic for follow up with no improvemen t and was placed on Doxycycline . Today he returned to clinic and states his sxs has not resolved and he still has pain and mild warm sensation to his R lower e xt . He denies fever or chills or fatigue. He denies seeing any drainage or pus. Allergies Paolo is allergic to clindamycin. Medications Outpatient Medications Prior to Visit Medication Sig Dispense Refill doxycycline 100 mg tablet Take 1 tablet by mouth 2 (two) times daily. 14 tab let 0 methylPREDNISolone (MEDROL, ZACK,) 4 mg tablets Take by mouth SEE-INSTRUCTIO NS. follow package directions 21 Each 0 fexofenadine [...] file Gets together: Not on file Attends evangelical service: Not on file Active member of [...] chest pain and palpitations. Gastrointestinal: Negative for nausea. Musculoskeletal: Negative for back pain and joint swelling. Skin: Positive for rash and wound. Right lower ext has mild discoloration. No warmth sensation Vital Signs BP 130/76 (BP Location: Left arm, Patient Position: Sitting, BP CUFF SIZE: Adult Large) | Pulse 56 | Temp 36.4 C (97.5 F) (Oral) | Resp 18 | Ht 5' 8" (1 .727 m) | Wt 380 lb 1.6 oz (172.4 kg) | BMI 57.79 kg/m Physical Exam Constitutional: He is oriented to person, place, and time. He appears well-devel oped and well-nourished. HENT: Head: Normocephalic and atraumatic. [...] no tenderness. Musculoskeletal: Normal range of motion. Lymphadenopathy: He has no cervical adenopathy. Neurological: He is alert and oriented to person, place, and time. No cranial ne rve deficit or sensory deficit. He exhibits normal muscle tone. Coordination nor mal. Skin: Skin is warm and dry. Capillary refill takes less than 2 seconds. No rash noted. Right lower ext slightly discolored No warmth sensation in clinic noted But patient says he has pain when I was asseessiing his R lower ext Psychiatric: He has a normal mood and affect. Assessment/Plan Paolo was seen today for leg pain. Diagnoses and all orders for this visit: Cellulitis of right lower extremity without foot - Discontinue: amoxicillin-clavulanate 875-125 mg per tablet; Take 1 tablet by mouth 2 (two) times daily. - mupirocin 2 % ointment; Apply to area(s) 3 (three) times daily. - CBC WITH DIFF - cephALEXin 500 mg capsule; Take 1 capsule by mouth 4 (four) times daily. - CBC WITH DIFFERENTIAL Other orders - cefTRIAXone (ROCEPHIN) injection 1,000 mg Advised on taking probiotics OTC TID and yogurt BID This visit did not involve counseling and coordination that comprised more than 50% of the visit time. * Monica Boateng - 03/16/2019 4:30 PM CDT Venipuncture X 1 completed in left arm. Pt tolerated well. Labs completed by Ene Boateng documented in this encounter Plan of Treatment Date/Time Name Type Priority Associated Diagnoses 03/16/2019 5:00 PM CDT CBC WITH DIFF LAB Routine Cellulitis of right lower extremity without foot 03/16/2019 5:00 PM CDT CBC WITH DIFFERENTIAL LAB Routine Cellulitis of right lower extremity without foot Health Maintenance Due Date Last Done Comments [...] Diagnoses Diagnosis Cellulitis of right lower extremity without foot - Primary documented in this encounter Administered Medications Action Date Dose Rate Site Medication Order MAR Action 03/16/2019 5:01 PM CDT 1,000 mg Right Dorsogluteal-IM cefTRIAXone (ROCEPHIN) injection 1,000 Given mg 1,000 mg, Intramuscular, ONCE, 1 dose, 03/16/19 at 1745, VINOD, Reason for Anti-Infective: Documented Infection, Documented Infection Site: Skin / Soft Tissue, Duration of Therapy: Other (see Comments) documented in this encounter Insurance Type Payer Benefit Subscriber ID Effective Phone Address Plan / Dates Group O AETNA [facility] [id number] 2017-P sanya documented as of this encounter
--- OUTSIDE RECORDS SUMMARY | 2019-06-01 06:32 | XMS REPORT | Summary of Care ---
Author Author [facility] - Health Organization [facility] - Health Address Unknown Phone Unavailable Care Team Providers Care Budget Record Clerk Name Role Phone Pcp, Patient Does Not Have A PCP Reason for Visit * Reason Comments Leg Pain redness and warmth Encounter Details Care Team Description Date Type Department Arnel Luciano, YOSEPH [address] [place] [address] [place] [address] [place] [phone] Cellulitis of right lower extremity without foot (Primary Dx) 03/16/2019 Office Visit [facility]- [place] [address], [address] [place] [phone] Allergies Comments Active Allergy Reactions Severity Noted [...] file Gets together: Not on file Attends nondenominational service: Not on file Active member of [...] Address Plan / Dates Group O AETNA [facility] [id number] 2017-P sanya documented as of this encounter
[2019-06-01] MEDS ORDERED: SODIUM CHLORIDE 0.9% 1000ML 1,000 ML IV ONE ×2 (07:00→07:30)
[2019-06-01] MEDS ORDERED: DIATRIZOATE MEGL/DIATRIZOA SOD 30 ML BTL PO ONE (07:18)
[2019-06-01] MEDS ORDERED: ACETAMINOPHEN 1000 MG/100 ML IV ONE (07:30)
[2019-06-01] MEDS ORDERED: ONDANSETRON HCL INJ 2MG/ML 2ML 2 MG/ML VIAL IV ONE ×2 (07:30→08:00)
[2019-06-01] MEDS ORDERED: METRONIDAZOLE 500MG/NS 100ML 100 ML IV ONE (07:30)
[2019-06-01] MEDS ORDERED: ACETAMINOPHEN 325 MG TAB PO ONE (07:30)
[2019-06-01] MEDS ORDERED: ONDANSETRON HCL INJ 2MG/ML 2ML 2 MG/ML VIAL IV PRN (07:45)
[2019-06-01 07:53] LABS: BASOPHILS % 0.7 % (0.0-1.0); EOSINOPHILS # (AUTO) 0.2 (0.0-0.4); EOSINOPHILS % 4.2 % (0.0-6.0); HEMATOCRIT 39.4 % (38.2-49.6); LYMPHOCYTES # (AUTO) 2.3 (1.0-3.2); LYMPHOCYTES % 53.8 % (18.0-39.1); MEAN CORPUSCULAR HEMOGLOBIN 29.7 pg (28-32); MEAN CORPUSCULAR HGB CONC 35.5 g/dL (31-35); MEAN CORPUSCULAR VOLUME 83.5 fL (81-99); MONOCYTES # (AUTO) 1.1 (0.2-0.8); MONOCYTES % 26.4 % (4.4-11.3); NEUTROPHILS # (AUTO) 0.6 (2.1-6.9); NEUTROPHILS % 13.2 % (38.7-80.0); PLATELET COUNT 267 x10e3/uL (140-360); RED BLOOD COUNT 4.72 x10e6/uL (4.3-5.7); RED CELL DISTRIBUTION WIDTH 12.6 % (11.7-14.4)
[2019-06-01] MEDS: METRONIDAZOLE 500MG/NS 100ML 100 ML IV SCH ×3 (07:57→20:44)
[2019-06-01] MEDS ORDERED: MORPHINE SULFATE INJ 4 MG/ML INJ 1ML IV ONE (08:00)
[2019-06-01] MEDS ORDERED: LEVOFLOXACIN 750MG/D5W 150ML 150 ML IV ONE ×2 (08:00→09:00)
[2019-06-01 08:14] LABS: ALANINE AMINOTRANSFERASE 45 IU/L (0-55); ALBUMIN 3.3 g/dL (3.5-5.0); ALBUMIN/GLOBULIN RATIO 0.9 (0.8-2.0); ALKALINE PHOSPHATASE 43 IU/L (40-150); ANION GAP 12.3 mmol/L (8-16); BLOOD UREA NITROGEN 7 mg/dL (7-26); BUN/CREATININE RATIO 7 (6-25); CALCIUM 9.1 mg/dL (8.4-10.2); CARBON DIOXIDE 28 mmol/L (22-29); CHLORIDE 100 mmol/L (98-107); CREATININE, SERUM 0.96 mg/dL (0.72-1.25); EST GLOMERULAR FILTRATION RATE > 60 ML/MIN (60-); GLUCOSE 108 mg/dL (74-118); POTASSIUM 3.3 mmol/L (3.5-5.1); SODIUM 137 mmol/L (136-145)
[2019-06-01 08:18] LABS: BILIRUBIN,URINE SMALL (NEGATIVE); CLARITY,URINE CLEAR (CLEAR); COLOR,URINE YELLOW (YELLOW); KETONES,URINE 1+ (NEGATIVE); LEUKOCYTE ESTERASE ,URINE NEGATIVE (NEGATIVE); NITRITE,URINE NEGATIVE (NEGATIVE); PROTEIN,URINE DIPSTICK TRACE (NEGATIVE); URINE UROBILINOGEN 4 mg/dL (0.2 - 1)
[2019-06-01 08:32] LABS: BACTERIA,URINE MANY /HPF; EPITHELIAL CELLS,URINE FEW /LPF; MUCUS,URINE MODERATE (RARE); RBC,URINE 0-5 /HPF (0-5); WBC,URINE (MAN) 0-5 /HPF (0-5)
[2019-06-01 08:33] LABS: AMORPHOUS SEDIMENT,URINE FEW (FEW)
--- NOTE | 2019-06-01 09:01 | NUR ---
waiting for ct result per md
--- NOTE | 2019-06-01 09:12 | Diagnostic Imaging Report ---
CT of the abdomen and pelvis, with contrast, 06/01/2019. History: Lower abdominal pain, fever. Comparison: None available. Technique: Multidetector CT scanning of the abdomen and pelvis was performed from the level of the lung bases to the inferior pubic rami after intravenous and oral administration of contrast. Coronal and sagittal multiplanar reformations were obtained. RADIATION DOSE: Total DLP: 1670 mGy*cm Dose modulation, iterative reconstruction, and/or weight based adjustment of the mA/kV was utilized to reduce the radiation dose to as low as reasonably achievable. Discussion: LUNG BASES: No visualized abnormalities. ABDOMEN: The liver is enlarged measuring 18 cm in length in the right midclavicular line. There is no focal hepatic abnormality. The gallbladder, biliary tree, spleen, pancreas, adrenal glands, and kidneys are normal. The hepatic vein, portal vein, and splenic vein are patent. The abdominal aorta is within normal limits for size. The stomach and small bowel are unremarkable. Scattered colonic diverticuli are present without evidence of adjacent inflammation. There is no evidence of adenopathy or free fluid. PELVIS: The bladder, prostate, and seminal vesicles are normal in appearance. There is no evidence of free fluid or adenopathy. BONES AND SOFT TISSUES: Degenerative changes are present throughout the lumbar spine without evidence of lytic or sclerotic lesion. IMPRESSION: 1. Hepatomegaly without focal hepatic abnormality. 2. Minimal colonic diverticulosis without evidence of diverticulitis. Otherwise unremarkable exam. Signed by: Ariel Moses on 06/01/2019 9:09 AM
[2019-06-01 09:15] LABS: BAND NEUTROPHILS % (MANUAL) 4 %; EOSINOPHILS % (MANUAL) 3 % (0-7); LYMPHOCYTES % (MANUAL) 56 % (19-48); MONOCYTES % (MANUAL) 23 % (3.4-9.0); NEUTROPHILS % (MANUAL) 11 % (40-74); NUCLEATED RED BLOOD CELLS 1
[2019-06-01 09:16] LABS: POIKILOCYTOSIS SLIGHT; RBC MORPHOLOGY COMMENT ABNORMAL; TEAR DROP CELLS FEW
[2019-06-01 09:17] LABS: PLATELET ESTIMATE ADEQUATE; PLATELET MORPHOLOGY COMMENT FEW LARGE
[2019-06-01] MEDS: FAMOTIDINE 20 MG/2 ML VIAL IV SCH ×2 (09:18→16:48)
--- NOTE | 2019-06-01 09:45 | NUR ---
.This 33 y/o male presents to ER with 4 day history of abd and rectal pain. He arrives to the unit via bed and routine adm procedures were carried out. He comp of pain 9/10 in the rectal area. Iv fluid were initiated and the pt made comfortable'
[2019-06-01 10:15] VITALS: BP 127/57
[2019-06-01 10:29] VITALS: BP 127/57
[2019-06-01] MEDS: SODIUM CHLORIDE 0.9% 1000ML 1,000 ML IV SCH ×4 (10:30→23:33)
[2019-06-01 11:40] VITALS: BP 109/55
[2019-06-01] MEDS ORDERED: METRONIDAZOLE 500MG/NS 100ML IV SCH (12:00)
--- NOTE | 2019-06-01 12:23 | History and Physical ---
CHIEF COMPLAINT: Rectal and abdominal pain. HISTORY OF PRESENT ILLNESS: The patient is a 33-year-old male with rectal pain. The patient stated that he has some pain. He saw his doctor, who was giving Proctosol suppository, and did not improve. There is no outside hemorrhoid. The patient stating that the rectal pain is quite severe. There is no constipation. The patient is stating that the pain much worse when he defecates. The patient has had no previous symptoms until recently. It started approximately 3 to 4 days ago. PAST MEDICAL HISTORY: Obesity and hypertension. PAST SURGICAL HISTORY: Noncontributory. SOCIAL HISTORY: The patient does not smoke or use alcohol. No regular drugs. FAMILY HISTORY: Significant for ulcerative colitis from his father family. ALLERGIES: CLINDAMYCIN. HOME MEDICATIONS: None. PHYSICAL EXAMINATION: VITAL SIGNS: Temperature is 100.4, blood pressure 151/83, pulse rate is 81, and respirations 20. GENERAL: The patient is not in acute distress. He is awake. HEENT: Normocephalic and atraumatic. Pupils reactive. Anicteric. NECK: Supple grossly. PULMONARY: Diminished breath sounds. CARDIOVASCULAR: Regular rate and rhythm. ABDOMEN: Soft, morbidly obese. EXTREMITIES: No cyanosis or edema. NEUROLOGIC: No focal deficit. RECTAL: Very tender to exam. There are no external hemorrhoids. There is no sign of infection on the outer area. LABORATORY DATA: Sodium is 137, potassium 3.3, chloride 100, bicarb 29, BUN 7, creatinine 0.9, and glucose 108. WBC 4.2, hemoglobin 14, hematocrit 39.4, and platelets is 367. IMPRESSION: 1. Rectal and abdominal pain. 2. Morbidly obese. 3. Baseline hypertension, stable. 4. Fever. PLAN: Continue with antibiotics. Consultation with Dr. Eliel Kirk. Consultation with Dr. Saud Peres. We will monitor the patient closely. The patient will continue with some IV fluids. He will most likely need endoscopy. We will follow up on the surgical intervention and recommendation. MD FLOWER Dubose/JOHANNA /[id number]
[2019-06-01] MEDS: MORPHINE SULFATE INJ 4 MG/ML INJ 1ML IV PRN ×4 (12:26→22:06)
[2019-06-01] MEDS ORDERED: SODIUM CHLORIDE 0.9% 50ML 50 ML ONE (14:32)
[2019-06-01] MEDS ORDERED: IOPAMIDOL 370 MG/ML 200 ML INFUS..BTL INJ ONE (14:33)
[2019-06-01 15:58] VITALS: BP 100/52
[2019-06-01 20:00] VITALS: BP 120/66
[2019-06-01] MEDS ORDERED: PSYLLIUM 6GM PACKET PO PRN (22:00)
--- NOTE | 2019-06-01 22:06 | NUR ---
PT C/O RECTAL PAIN PRN PAIN MEDICATION GIVEN PER SEP.PT STATED THAT HE WANTS TAKE SITZ BATH IN THE MORNING.
[2019-06-02] VITALS: BP 109/42
--- NOTE | 2019-06-02 01:01 | Consultation ---
DATE OF CONSULTATION: 06/01/2019 REASON FOR CONSULT: Rectal pain for 2-3 days. HISTORY OF PRESENTING ILLNESS: 33-year-old male with morbid obesity, who got admitted through the emergency room with worsening of rectal pain for 3-4 days. Rectal pain is worse while having a defecation. He admits to have passed hard stool, few days ago. Ever since then he has been having rectal pain. Denies any rectal bleeding. He had one episode of some diarrhea before coming to the hospital. No abdominal pain. No prior issue of any hemorrhoids or anal fissure. He denies any homosexual practices. REVIEW OF SYSTEMS: Twelve point system reviewed, symptomatology is limited as per HPI. PAST MEDICAL HISTORY: Obesity and hypertension. PAST SURGICAL HISTORY: None. SOCIAL HISTORY: No smoking, alcohol, or any illicit drug use. FAMILY HISTORY: Negative for any GI or SOCIAL MEDIA INTERN malignancies. ALLERGIES: CLINDAMYCIN. HOME MEDICATIONS: None. INPATIENT MEDICATIONS: Reviewed as per MAR. The patient is getting intravenous metronidazole as was as levofloxacin along with other medication. PHYSICAL EXAMINATION: VITAL SIGNS: Temperature 97.6, pulse 60, respirations 20, blood pressure 109/55 to 100/52, and oxygen saturation 98% on room air. GENERAL: Not in any acute distress. Obese body habitus. Oral mucosa is moist. Anicteric sclerae. CVS: S1 and S2 regular. LUNGS: Bilaterally grossly clear. ABDOMEN: Obese, nondistended, and nontender. No palpable mass or hernia. Positive bowel sounds. EXTREMITIES: Warm. No leg edema. RECTAL: Tender. The patient did not allow me to insert the finger. No external hemorrhoids. Extremely tender on bare minimum insertion of finger. No blood on the gloved finger. So, rectal exam is basically incomplete. LABORATORY DATA: WBC 4.24, hemoglobin 14, hematocrit 39.4, MCV 83.5, and platelet count 267. Sodium 137, potassium 3.3, chloride 100, bicarb 28, BUN 7, and creatinine 0.96. Liver enzymes are normal. CT of the abdomen and pelvis with contrast showed. 1. Hepatomegaly without focal hepatic abnormality. 2. Minimal colonic diverticulosis without evidence of diverticulitis. Otherwise unremarkable exam. IMPRESSION: Rectal pain due to anal fissure. PLAN: I am taking the liberty to discontinue antibiotics. High-fiber diet. Metamucil one tablespoonful in a glass of water every night. Sitz baths. Hydrocortisone or nitroglycerin rectal cream. The patient needs this treatment to be continued, this treatment can be done as an outpatient. Therefore, patient can be discharged home from GI standpoint. I thank Dr. Manrique, for allowing me to participate in the care of this patient. Elton Arevalo MD SA/JOHANNA /[id number]
[2019-06-02 04:00] VITALS: BP 146/89
[2019-06-02 05:46] LABS: ALANINE AMINOTRANSFERASE 39 IU/L (0-55); ALBUMIN 2.9 g/dL (3.5-5.0); ALBUMIN/GLOBULIN RATIO 0.9 (0.8-2.0); ALKALINE PHOSPHATASE 39 IU/L (40-150); ANION GAP 13.2 mmol/L (8-16); BLOOD UREA NITROGEN 8 mg/dL (7-26); BUN/CREATININE RATIO 9 (6-25); CALCIUM 8.4 mg/dL (8.4-10.2); CARBON DIOXIDE 24 mmol/L (22-29); CHLORIDE 101 mmol/L (98-107); CREATININE, SERUM 0.85 mg/dL (0.72-1.25); EST GLOMERULAR FILTRATION RATE > 60 ML/MIN (60-); GLUCOSE 91 mg/dL (74-118); POTASSIUM 3.2 mmol/L (3.5-5.1); SODIUM 135 mmol/L (136-145)
[2019-06-02] MEDS: SODIUM CHLORIDE 0.9% 1000ML 1,000 ML IV SCH ×2 (05:47→07:33)
[2019-06-02] MEDS: MORPHINE SULFATE INJ 4 MG/ML INJ 1ML IV PRN ×2 (05:48→09:38)
[2019-06-02 06:40] LABS: BASOPHILS % 0.5 % (0.0-1.0); EOSINOPHILS # (AUTO) 0.2 (0.0-0.4); EOSINOPHILS % 3.6 % (0.0-6.0); HEMOGLOBIN 13.1 g/dL (14.0-18.0); LYMPHOCYTES # (AUTO) 2.1 (1.0-3.2); LYMPHOCYTES % 50.1 % (18.0-39.1); MEAN CORPUSCULAR HEMOGLOBIN 28.9 pg (28-32); MEAN CORPUSCULAR HGB CONC 34.5 g/dL (31-35); MEAN CORPUSCULAR VOLUME 83.7 fL (81-99); MONOCYTES % 24.2 % (4.4-11.3); NEUTROPHILS # (AUTO) 0.8 (2.1-6.9); NEUTROPHILS % 19.2 % (38.7-80.0); PLATELET COUNT 305 x10e3/uL (140-360); RED BLOOD COUNT 4.54 x10e6/uL (4.3-5.7); RED CELL DISTRIBUTION WIDTH 12.7 % (11.7-14.4)
--- NOTE | 2019-06-02 07:00 | NUR ---
RCD PT AT BED PT IS ALERT AND ORIENTED PT RESTING ON BED NO SIGNS OF ANY DISTRESS NOTED IV PATENT AND RUNNING 125 ML/HR BY SALINE FLUSH FAMILY AT BED SIDE BED LOW AND LOCKED CALL LIGHT IN REACH
--- NOTE | 2019-06-02 07:18 | NUR ---
BEDSIDE SHIFT REPORT GIVEN TO ONCOMING NURSE.PT RESTING IN BED WITH NO S/S OF DISTRESS.CALL LIGHT WITHIN EASY REACH.
[2019-06-02 08:12] VITALS: BP 127/58
[2019-06-02] MEDS: FAMOTIDINE 20 MG/2 ML VIAL IV SCH (08:31)
[2019-06-02 08:37] VITALS: BP 127/58
[2019-06-02] MEDS ORDERED: LEVOFLOXACIN 750MG/D5W 150ML 150 ML IV SCH (09:00)
[2019-06-02] MEDS ORDERED: HYDROCORTISONE 2.5% CREAM 30GM TUBE TOP SCH (09:00)
--- NOTE | 2019-06-02 10:02 | NUR ---
PAGED DR Shaun TREVINO TO REMIND THE CONSULTATION AND TALKED TO ANSWERING SERVICE
[2019-06-02] MEDS ORDERED: POTASSIUM CHLORIDE 10MEQ EA PO NR (10:30)
[2019-06-02 12:34] VITALS: BP 115/56
--- NOTE | 2019-06-02 13:33 | NUR ---
PT REQUESTED TO GO HOME HE CANNOT WAIT DR Shaun TREVINO NOTIFIED THE PATIENT INFORMATION COORDINATOR SHE SAID CALL DR VALENZUELA AND NOTIFY IT
--- NOTE | 2019-06-02 13:38 | NUR ---
PAGED DR VALENZUELA TO NOTIFY THE PATIENTS REQUEST AND LEFT THE VOICE MESSAGE
--- NOTE | 2019-06-02 13:50 | NUR ---
DR VALENZUELA RETURNED THE CALL AND GOT THE DISCHARGE ORDER
[2019-06-02] MEDS ORDERED: HYDROMORPHONE RC (13:59)
[2019-06-02] MEDS ORDERED: MIRALEX PO (14:00)
--- NOTE | 2019-06-02 14:38 | NUR ---
PT WENT HOME IN SAFE CONDITION WITH HIS
== END 2019-06-02 14:38 | disposition home or self-care (01) | DRG 394 ==
LOC: ER 06:29 → ERHOLD 07:48 → MED/SURG2 09:47
PROVIDERS: ADMIT Internal Medicine; ATTEND Internal Medicine
DX: K60.2 Anal fissure, unspecified (principal); Z68.43 Body mass index [BMI] 50.0-59.9, adult; E66.01 Morbid (severe) obesity due to excess calories; I10 Essential (primary) hypertension; Z88.1 Allergy status to other antibiotic agents
CPT/HCPCS: 36415; 74177; 80053; 81001; 85025; 99284; J2270; J2405; J7030; Q9967